=== PATIENT | female | born 1995 | race Caucasian/White ===

== ENCOUNTER 2024-12-24 19:16 | Emergency (ER) | payer OTHER, SELFPAY ==
--- NOTE | ~2024-12-24 | XR_ITS ---
XR finger 2nd LT min 2V Ordering provider: Ryne Robins APRN History: . injury today, pip 2nd digit . Comparison: None. FINDINGS: BONES: No acute fracture or dislocation. JOINT SPACES: Normal. SOFT TISSUES: Normal. IMPRESSION: No acute osseous abnormality. Reviewed, dictated and finalized at location A.
[2024-12-24 19:21] VITALS: BP 132/69; PULSE 91; RESP 16; TEMP 36.9; O2SAT 100
--- NOTE | 2024-12-24 20:12 | ED.UPPEXIN ---
HPI - Extremity Injury (Upper) General Chief Complaint: Extremity Injury, Upper Stated Complaint: INJURED L INDEX FINGER Source: patient and RN notes reviewed Mode of arrival: ambulatory Limitations: no limitations History of Present Illness HPI narrative: 29-year-old female presents [facility] complaining of a left index finger injury. Patient states she accidentally hit her finger on the wall bleed that she possibly jammed are fractured it. She reports her some swelling to her left index finger. She denies any deformity, this numbness, tingling or any other concerns. She has taken Motrin prior to arrival with some relief. Related Data Home Medications ?Medication ?Instructions ?Recorded ?Confirmed ?Last Taken ?Type No Home Medications 12/24/24 12/24/24 Unknown History Allergies Allergy/AdvReac Type Severity Reaction Status Date / Time No Known Allergies Allergy Unverified 12/24/24 19:22 Review of Systems Review of Systems: CONSTITUTIONAL: Denies fever, chills, or sweats. EYES: Denies visual changes, redness, or discharge. ENT: Denies rhinorrhea, congestion, sore throat, or otalgia. CARDIOVASCULAR: Denies chest pain, palpitations, or edema. RESPIRATORY: Denies cough or dyspnea. GASTROINTESTINAL: Denies abdominal pain, nausea, vomiting, or diarrhea. GENITOURINARY: Denies dysuria or hematuria. SKIN: Denies rash or itching. MUSCULOSKELETAL: Denies back pain, joint pain, or myalgia. Positive for Left index finger pain NEUROLOGIC: Denies headache, numbness, or weakness. PSYCHIATRIC: Denies anxiety or depression. All other systems reviewed are negative, except as documented in HPI. PMFSH Family History Family History Father Hypertension Social History Social History Smoking status: Never smoker Alcohol intake: current Comments At the time of my signature, I reviewed and agree with the nursing past medical, surgical, social, and family history. There is no relevant family history pertinent to the patient complaint. Exam Narrative: GENERAL: This is a well-nourished, well-developed adult, in no apparent distress. They are non ill-appearing, nontoxic appearing. HEAD: normocephalic, atraumatic. EYES: Sclera clear/white. Vision is grossly intact. EARS: External ears normal, Hearing grossly intact. NOSE: External nose normal THROAT: Mucous membranes moist NECK: Normal range of motion CARDIOVASCULAR: Regular rate and rhythm RESPIRATORY: Normal respiratory rate. Respiratory effort is nonlabored. No respiratory distress SKIN: warm, Dry, intact with no suspicious lesions or rash, good texture and turgor. NEURO: awake, alert, and oriented to person, place and time. There were no obvious focal neurologic abnormalities. EXTREMITIES: Left index finger: There is localize swelling present to the index finger. There is tenderness to palpation in the PIP joint. There is no obvious deformity. There is no redness, bruising, discharge. Patient cannot make a complete fist with her left index finger due to the swelling. She is able to make an okay sign and a stop sign. Patient is able to flex and extend her finger with mild discomfort. Patient is able to flex and extend her finger with resistance to the DIP without pain. Neurovascular status is intact distal to injury. Capillary refill less than than 2 seconds Course Course Level of Care: Express Care Visit Vital Signs Vital signs: Vital Signs Temperature 98.5 F 12/24/24 19:21 Pulse Rate 91 12/24/24 19:21 Respiratory Rate 16 12/24/24 19:21 Blood Pressure 132/69 12/24/24 19:21 Pulse Oximetry 100 12/24/24 19:21 Oxygen Delivery Room Air 12/24/24 19:21 Temperature 98.5 F 12/24/24 19:21 Pulse Rate 91 12/24/24 19:21 Respiratory Rate 16 12/24/24 19:21 Blood Pressure 132/69 12/24/24 19:21 Pulse Oximetry 100 12/24/24 19:21 Oxygen Delivery Room Air 12/24/24 19:21 Reviewed MDM - Extremity Injury (Upper) MDM Narrative Medical decision making narrative: X-rays negative for any acute fracture findings. Discussed physical exam findings. Advised supportive measures and signs/symptoms to go to the ER. Pt is appropriate for outpt treatment and f/u. Differential Diagnosis Differential diagnosis: Likely other (Finger fracture, jammed finger, mallet finger) Critical Care Time Critical Care Time Critical Care Time: No Discharge Plan Discharge Clinical Impression: Finger sprain Qualifiers: Encounter type: initial encounter Finger: index finger Sprain of finger site: unspecified site Laterality: left Qualified Code(s): S63.611A - Unspecified sprain of left index finger, initial encounter Patient Disposition: Home Condition: Stable Instructions: Jammed Finger (ED) Additional Instructions: X-ray is negative for any acute fracture or findings. You may apply ice or heat to the injury 20 minutes at a time. Take Tylenol ibuprofen as needed for pain. Please follow-up with your primary care provider in 3-5 days if her symptoms are not getting any better. Patient Language: Bel[place]ian Prescriptions: No Action No Home Medications Follow-up/Referrals: Kristel,Ru Hardy MD [Primary Care Provider] - Time of Disposition: 19:53
== END 2024-12-24 19:56 | disposition home or self-care (01) ==
PROVIDERS: PCP Internal Medicine
DX: S63.611A Unspecified sprain of left index finger, initial encounter (principal); W22.09XA Striking against other stationary object, initial encounter
CPT/HCPCS: 73140; 99213; G0463